=== PATIENT | female | born 1965 | race African-American/Black ===

== ENCOUNTER 2017-02-21 23:31 | Emergency (ER) | payer MEDICAID ==
[~2017-02-21 23:31] MED LIST: LISI-363 PO; LORTA5 PO
[2017-02-21 23:33] VITALS: BP 169/89; PULSE 93; RESP 16; TEMP 98.7; O2SAT 100
[2017-02-22] MEDS ORDERED: IBUP-232 PO (09:33)
== END 2017-02-22 01:18 | disposition left against medical advice (07) ==
LOC: NED 23:31
DX: M25.572 Pain in left ankle and joints of left foot (principal); Z53.21 Procedure and treatment not carried out due to patient leaving prior to being seen by health care provider
CPT/HCPCS: 99281

== ENCOUNTER 2017-02-22 08:34 | Emergency (ER) | payer MEDICAID ==
[2017-02-22 08:37] VITALS: BP 173/94; PULSE 88; RESP 18; TEMP 98; O2SAT 96
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
[2017-02-22] MEDS ORDERED: IBUPROFEN 600 MG TAB PO ONE (09:00)
--- NOTE | 2017-02-22 09:27 | RADRPT ---
EXAM DATE/TIME: 02/22/2017 09:17 [facility] COMPARISON: No previous studies available for comparison. INDICATIONS : Left foot pain and swelling. MEDICAL HISTORY : Hypertension. Gastroesophageal reflux disease. Cholelithiasis SURGICAL HISTORY : section. ENCOUNTER: Initial ACUITY: 2 days PAIN SCORE: 3/10 LOCATION: Left Foot. FINDINGS: Three view examination of the left foot demonstrates no soft tissue swelling, dislocation, or fractur e. The tarsal bones appear intact. The interphalangeal and metatarsophalangeal joints are intact. The calcaneus is intact. Bony mineralization is normal. CONCLUSION: Unremarkable examination of the left foot. Derek Díaz MD on February 22, 2017 at 9:23 Board Certified Radiologist. This report was verified electronically.
[2017-02-22] MEDS ORDERED: IBUP-232 PO (09:33)
== END 2017-02-22 09:49 | disposition home or self-care (01) ==
LOC: NEPK 08:34
DX: S97.82XA Crushing injury of left foot, initial encounter (principal); W23.0XXA Caught, crushed, jammed, or pinched between moving objects, initial encounter
CPT/HCPCS: 73630; 99283; E0113; L3260

== ENCOUNTER 2017-12-27 22:11 | Emergency (ER) | payer MEDICAID, OTHER ==
[~2017-12-27 22:11] MED LIST changes: +IBUP-232 PO; -LORTA5 PO
[2017-12-27 22:40] VITALS: BP 139/65; PULSE 78; RESP 16; TEMP 98.1; O2SAT 96
[2017-12-27] MEDS ORDERED: SODIUM CHLORIDE 0.9% FLUSH 10 ML FLUSH IVF PRN (23:15)
[2017-12-27] MEDS ORDERED: SODIUM CHLORID 0.9% 500 ML INJ 500 ML IV ONE (23:15)
[2017-12-27] MEDS ORDERED: ASPIRIN 81 MG CHEW TAB PO ONE (23:15)
--- NOTE | 2017-12-27 23:22 | PD ---
HPI Chief Complaint: GI Complaint Time Seen by Provider: 22:48 Travel History International Travel<30 days: No Contact w/Intl Traveler<30days: No Traveled to known affect area: No History of Present Illness HPI The patient is a 52-year-old female who presents to the emergency department for right breast burning and discomfort. The patient states her symptoms started at approximately 2 AM last night while she was sleeping. They last until about 6 AM, then changed to a discomfort over the affected area. She does have some mild burning in the right breast with pain that occasionally goes up to the right shoulder. She feels like her right shoulder has been working out, however, she denies any change in activity recently. She denies any change in shortness of breath, but does note daily shortness of breath since she "put on weight ". She denies any known history of coronary artery disease, hyperlipidemia, tobacco use, diabetes, or significant family medical history for early heart disease. She does have a history of hypertension. She denies any known history of breast cancer, however , has never had a mammogram. She denies any change in her breast in regards to the skin. She denies any diaphoresis, nausea, vomiting, or upper abdominal pain. Symptoms are moderate. PFSH Past Medical History Hx Anticoagulant Therapy: No Blood Disorders: No Anxiety: No Depression: No Cancer: No Cardiovascular Problems: No Chemotherapy: No Cerebrovascular Accident: No Diabetes: No Diminished Hearing: No Endocrine: No Gastrointestinal Disorders: Yes GERD: Yes Genitourinary: No Hypertension: Yes Immune Disorder: No Musculoskeletal: No Neurologic: No Psychiatric: No Reproductive: No Respiratory: No ?: Unknown : 6 Para: 4 Miscarriage: 1 : 1 Ovarian Cysts: Yes Past Surgical History Section: Yes (X3) Hysterectomy: No Social History Alcohol Use: No Tobacco Use: No Substance Use: No Allergies-Medications (Allergen,Severity, Reaction): Coded Allergies: Sulfa (Sulfonamide Antibiotics) (Unverified Allergy, Severe, SWELLING OF FACE, 12/27/17) sulfamethoxazole (Unverified Allergy, Severe, anaphylactic, 12/27/17) trimethoprim (Unverified Allergy, Severe, anaphylactic, 12/27/17) Reported Meds & Prescriptions Reported Meds & Active Scripts Active Reported Lisinopril 20 Mg Tab 20 Mg PO EVERY OTHER DAY Review of Systems Except as stated in HPI: all other systems reviewed are Neg General / Constitutional: No: Fever HENT: No: Lightheadedness Cardiovascular: Positive: Chest Pain or Discomfort, No: Diaphoresis Respiratory: No: Shortness of Breath Gastrointestinal: No: Nausea, Vomiting Genitourinary: No: Dysuria Skin: Positive Other (Right breast burning is noted), No Rash, No Itching Physical Exam Narrative GENERAL: Awake, alert, very pleasant 52-year-old female who appears her stated age and is in no acute respiratory distress. SKIN: Focused skin assessment warm/dry. No stigmata of shingles. HEAD: Atraumatic. Normocephalic. EYES: Pupils equal and round. No scleral icterus. No injection or drainage. ENT: No nasal bleeding or discharge. Mucous membranes pink and moist. NECK: Trachea midline. No JVD. CARDIOVASCULAR: Regular rate and rhythm. No murmur appreciated. RESPIRATORY: No accessory muscle use. Clear to auscultation. Breath sounds equal bilaterally. GASTROINTESTINAL: Abdomen soft, non-tender, nondistended. Breasts: The exam was performed in the presence of a female nurse. There is no obvious skin changes over the breast. No nipple retraction noted. No palpable lumps or masses on examination of the right breast. MUSCULOSKELETAL: No obvious deformities. No clubbing. No cyanosis. No edema. NEUROLOGICAL: Awake and alert. No obvious cranial nerve deficits. Motor grossly within normal limits. Normal speech. PSYCHIATRIC: Appropriate mood and affect; insight and judgment normal. Data Data Last Documented VS Vital Signs Date Time Temp Pulse Resp B/P (MAP) Pulse Ox O2 Delivery O2 Flow Rate FiO2 12/28/17 00:18 133/74 (93) 137/72 (93) 12/27/17 23:57 98 Room Air 12/27/17 22:40 98.1 78 16 Orders Orders Electrocardiogram (12/27/17 23:15) Ckmb (Isoenzyme) Profile (12/27/17 23:15) Complete Blood Count With Diff (12/27/17 23:15) Comprehensive Metabolic Panel (12/27/17 23:15) Magnesium (Mg) (12/27/17 23:15) Prothrombin Time / Inr (Pt) (12/27/17 23:15) Act Partial Throm Time (Ptt) (12/27/17 23:15) Troponin I (12/27/17 23:15) Lipase (12/27/17 23:15) Ecg Monitoring (12/27/17 23:15) Bilateral Bp Monitoring (12/27/17 23:15) Iv Access Insert/Monitor (12/27/17 23:15) Oximetry (12/27/17 23:15) Oxygen Administration (12/27/17 23:15) Aspirin Chew (Aspirin Chew) (12/27/17 23:15) Sodium Chloride 0.9% Flush (Ns Flush) (12/27/17 23:15) Sodium Chlorid 0.9% 500 Ml Inj (Ns 500 M (12/27/17 23:15) Chest, Pa & Lat (12/27/17 23:15) Ed Urine Pregnancytest Poc (12/27/17 23:31) CKMB (12/27/17 23:25) CKMB% (12/27/17 23:25) Troponin I (12/28/17 02:25) Labs Laboratory Tests Test 12/27/17 23:25 12/28/17 02:20 White Blood Count 8.3 TH/MM3 Red Blood Count 4.51 MIL/MM3 Hemoglobin 12.3 GM/DL Hematocrit 37.1 % Mean Corpuscular Volume 82.2 FL Mean Corpuscular Hemoglobin 27.3 PG Mean Corpuscular Hemoglobin Concent 33.2 % Red Cell Distribution Width 15.1 % Platelet Count 231 TH/MM3 Mean Platelet Volume 9.6 FL Neutrophils (%) (Auto) 46.4 % Lymphocytes (%) (Auto) 42.1 % Monocytes (%) (Auto) 8.5 % Eosinophils (%) (Auto) 2.5 % Basophils (%) (Auto) 0.5 % Neutrophils # (Auto) 3.8 TH/MM3 Lymphocytes # (Auto) 3.5 TH/MM3 Monocytes # (Auto) 0.7 TH/MM3 Eosinophils # (Auto) 0.2 TH/MM3 Basophils # (Auto) 0.0 TH/MM3 CBC Comment DIFF FINAL Differential Comment Prothrombin Time 9.9 SEC Prothromb Time International Ratio 1.0 RATIO Activated Partial Thromboplast Time 22.9 SEC Blood Urea Nitrogen 16 MG/DL Creatinine 1.00 MG/DL Random Glucose 111 MG/DL Total Protein 7.6 GM/DL Albumin 3.5 GM/DL Calcium Level 9.0 MG/DL Magnesium Level 2.0 MG/DL Alkaline Phosphatase 87 U/L Aspartate Amino Transf (AST/SGOT) 22 U/L Alanine Aminotransferase (ALT/SGPT) 29 U/L Total Bilirubin 0.2 MG/DL Sodium Level 139 MEQ/L Potassium Level 4.1 MEQ/L Chloride Level 106 MEQ/L Carbon Dioxide Level 23.0 MEQ/L Anion Gap 10 MEQ/L Estimat Glomerular Filtration Rate 71 ML/MIN Total Creatine Kinase 143 U/L Creatine Kinase MB LESS THAN 0.5 NG/ML Troponin I LESS THAN 0.02 NG/ML LESS THAN 0.02 NG/ML Lipase 104 U/L [facility] Medical Decision Making Medical Screen Exam Complete: Yes Emergency Medical Condition: Yes Medical Record Reviewed: Yes Interpretation(s) EKG reveals normal sinus rhythm with a rate of 78. Q-wave noted in lead III. Nonspecific T-wave changes. Last Impressions Chest X-Ray 12/27/17 [id number] Signed Impressions: CONCLUSION: No acute intrathoracic disease. Laboratory Tests Test 12/27/17 23:25 12/28/17 02:20 White Blood Count 8.3 TH/MM3 Red Blood Count 4.51 MIL/MM3 Hemoglobin 12.3 GM/DL Hematocrit 37.1 % Mean Corpuscular Volume 82.2 FL Mean Corpuscular Hemoglobin 27.3 PG Mean Corpuscular Hemoglobin Concent 33.2 % Red Cell Distribution Width 15.1 % Platelet Count 231 TH/MM3 Mean Platelet Volume 9.6 FL Neutrophils (%) (Auto) 46.4 % Lymphocytes (%) (Auto) 42.1 % Monocytes (%) (Auto) 8.5 % Eosinophils (%) (Auto) 2.5 % Basophils (%) (Auto) 0.5 % Neutrophils # (Auto) 3.8 TH/MM3 Lymphocytes # (Auto) 3.5 TH/MM3 Monocytes # (Auto) 0.7 TH/MM3 Eosinophils # (Auto) 0.2 TH/MM3 Basophils # (Auto) 0.0 TH/MM3 CBC Comment DIFF FINAL Differential Comment Prothrombin Time 9.9 SEC Prothromb Time International Ratio 1.0 RATIO Activated Partial Thromboplast Time 22.9 SEC Blood Urea Nitrogen 16 MG/DL Creatinine 1.00 MG/DL Random Glucose 111 MG/DL Total Protein 7.6 GM/DL Albumin 3.5 GM/DL Calcium Level 9.0 MG/DL Magnesium Level 2.0 MG/DL Alkaline Phosphatase 87 U/L Aspartate Amino Transf (AST/SGOT) 22 U/L Alanine Aminotransferase (ALT/SGPT) 29 U/L Total Bilirubin 0.2 MG/DL Sodium Level 139 MEQ/L Potassium Level 4.1 MEQ/L Chloride Level 106 MEQ/L Carbon Dioxide Level 23.0 MEQ/L Anion Gap 10 MEQ/L Estimat Glomerular Filtration Rate 71 ML/MIN Total Creatine Kinase 143 U/L Creatine Kinase MB LESS THAN 0.5 NG/ML Troponin I LESS THAN 0.02 NG/ML LESS THAN 0.02 NG/ML Lipase 104 U/L Differential Diagnosis Differential diagnosis includes shingles, fibrocystic breast disease, breast mass, ACS, GERD, esophageal spasm, radiculopathy, pulmonary aneurysm, pneumonia. Narrative Course IV was established, labs are drawn and sent, and the patient was placed on cardiac telemetry monitoring and continuous pulse oximetry monitoring. EKG was ordered and interpreted. Bedside UA test was negative. A breast exam was performed on the right side with a female nurse in the room. No obvious breast mass or lesion, no stigmata of shingles. Therefore, cardiac enzymes were sent to lab. The chest x-ray was unremarkable. Serial cardiac enzymes were negative. The patient's symptoms have resolved. The patient is advised to follow-up with a primary physician on an outpatient basis for mammogram. Patient will be provided a copy of her EKG, lab results, chest x- ray results at discharge. I will refill the patient's lisinopril as she has been trying to take one every other day to extend her prescription until she can be seen by her primary physician. Diagnosis Primary Impression: Mastalgia Additional Impression: Medication refill Patient Instructions: General Instructions Additional Instructions: Please provide the patient a copy of her EKG, lab results, chest x-ray results at discharge. Lisinopril as directed. Follow-up with your primary physician for outpatient mammogram. Return if symptoms worsen or progress. Med/Other Pt SpecificInfo: Prescription(s) given Scripts Lisinopril (Lisinopril) 20 Mg Tab 20 MG PO DAILY, #30 TAB 2 Refills Prov: Brandon Ch MD 12/28/17 Disposition: DISCHARGE HOME Condition: Stable Brandon Ch MD Dec 27, 2017 23:22
[2017-12-27 23:42] LABS: AUTOMATED NEUTROPHIL # 3.8 TH/MM3 (1.8-7.7); BASOPHIL % 0.5 % (0.0-2.0); EOSINOPHIL # 0.2 TH/MM3 (0-0.4); EOSINOPHIL % 2.5 % (0.0-4.0); HEMATOCRIT 37.1 % (35.0-46.0); HEMOGLOBIN 12.3 GM/DL (11.6-15.3); LYMPH % 42.1 % (9.0-44.0); LYMPHOCYTE # 3.5 TH/MM3 (1.0-4.8); MEAN CELL VOLUME 82.2 FL (80.0-100.0); MEAN CORPUSCULAR HEMOGLOBIN 27.3 PG (27.0-34.0); MEAN CORPUSCULAR HGB CONC 33.2 % (32.0-36.0); MEAN PLATELET VOLUME 9.6 FL (7.0-11.0); MONO % 8.5 % (0.0-8.0); MONOCYTE # 0.7 TH/MM3 (0-0.9); NEUT % 46.4 % (16.0-70.0); PLATELET COUNT 231 TH/MM3 (150-450); RED BLOOD COUNT 4.51 MIL/MM3 (4.00-5.30); RED CELL DISTRIBUTION WIDTH 15.1 % (11.6-17.2); WHITE BLOOD COUNT 8.3 TH/MM3 (4.0-11.0)
[2017-12-27 23:53] LABS: PROTHROMBIN TIME - PATIENT 9.9 SEC (9.8-11.6)
--- NOTE | 2017-12-27 23:55 | RADRPT ---
EXAM DATE: 12/27/2017 11:50 PM EDT AGE/SEX: 52 years / Female INDICATIONS: Chest Pain underneath left breast. CLINICAL DATA: This is the patient's initial encounter. Patient reports that signs and symptoms have been present for 1 day and indicates a pain score of 6/10. MEDICAL/SURGICAL HISTORY: None. None. COMPARISON: No prior [place] exams available for comparison. FINDINGS: PA and lateral views of the chest demonstrate the lungs to be symmetrically aerated without evidence of mass, infiltrate or effusion. The cardiomediastinal contours are unremarkable. Osseous structures are intact. CONCLUSION: No acute intrathoracic disease. Electronically signed by: Robby Walden MD 12/27/2017 11:54 PM EDT
[2017-12-27 23:57] VITALS: O2SAT 98
[2017-12-27 23:58] LABS: ALT (GPT) 29 U/L (10-53)
[2017-12-28 00:02] LABS: ALKALINE PHOSPHATASE 87 U/L (45-117); TOTAL BILIRUBIN ADULT 0.2 MG/DL (0.2-1.0); TOTAL PROTEIN 7.6 GM/DL (6.4-8.2); TROPONIN I LESS THAN 0.02 NG/ML (0.02-0.05)
[2017-12-28 00:13] LABS: ALBUMIN 3.5 GM/DL (3.4-5.0); AST (GOT) 22 U/L (15-37); BLOOD UREA NITROGEN 16 MG/DL (7-18); CHLORIDE 106 MEQ/L (98-107); GLOMERULAR FILTRATION RATE 71 ML/MIN (>89); GLUCOSE,RANDOM 111 MG/DL (74-106); SODIUM (NA) 139 MEQ/L (136-145)
[2017-12-28 00:18] VITALS: BP_SYST 133; BP_SYST 137; BP_DIAS 72; BP_DIAS 74
[2017-12-28] MEDS ORDERED: LISI-515 PO ×2 (00:20→03:08)
--- NOTE | 2017-12-28 19:05 | EKG ---
Date Performed: 12/27/2017 Time Performed: 22:18:21 PTAGE: 52 years EKG: Sinus rhythm NONSPECIFIC T-WAVE ABNORMALITY BORDERLINE ECG PREVIOUS TRACING : 09/08/2013 22.05 Since the previous tracing, no significant change noted DOCTOR: Yoli Conteh Interpretating Date/Time 12/28/2017 19:04:38
== END 2017-12-28 03:30 | disposition home or self-care (01) ==
LOC: NEPE 22:11
DX: N64.4 Mastodynia (principal); Z76.0 Encounter for issue of repeat prescription; R94.31 Abnormal electrocardiogram [ECG] [EKG]; R06.02 Shortness of breath; I10 Essential (primary) hypertension; K21.9 Gastro-esophageal reflux disease without esophagitis; N83.209 Unspecified ovarian cyst, unspecified side
CPT/HCPCS: 71046; 80053; 82550; 82552; 83690; 83735; 84484; 84703; 85025; 85610; 85730; 93005; 96360; 99285; J7040